=== PATIENT | male | born 1995 | race African-American/Black ===

== ENCOUNTER 2018-03-04 12:14 | Emergency (ER) | payer SELFPAY ==
[~2018-03-04] VITALS: Ht 185.4 cm; Wt 68.0 kg
[2018-03-04 12:28] VITALS: BP 137/64; PULSE 72; RESP 18; TEMP 98.7; O2SAT 99
[2018-03-04] MEDS ORDERED: CEPH-460 PO (12:54)
[2018-03-04] MEDS ORDERED: MAGICADU2 SWISH-SWAL (12:54)
--- NOTE | 2018-03-04 12:55 | PD ---
HPI Chief Complaint: ENT Complaint Time Seen by Provider: 12:35 Travel History International Travel<30 days: No Contact w/Intl Traveler<30days: No Traveled to known affect area: No History of Present Illness HPI 22-year-old male arrives with complaint of sore throat for about 1 week. It is constant. Initially started on the right side and involve the left side as well. Patient also describes body aches and pains. He noticed a bump overlying the region of the greater trochanter on each hip over the past day or so. He denies fever. No sick contacts. PFSH Past Medical History Medical History: Denies Significant Hx Tetanus Vaccination: < 5 Years ?: Not Past Surgical History Surgical History: No Previous Surgery Social History Alcohol Use: No Tobacco Use: No Substance Use: No Allergies-Medications (Allergen,Severity, Reaction): Coded Allergies: latex (Verified Allergy, Unknown, 03/04/18) Reported Meds & Prescriptions Reported Meds & Active Scripts Active No Active Prescriptions or Reported Medications Review of Systems General / Constitutional: No: Fever Eyes: No: Blurred Vision HENT: Positive: Sore Throat Physical Exam Narrative GENERAL: 22-year-old male pleasant well-nourished well-developed Vital Signs Date Time Temp Pulse Resp B/P (MAP) Pulse Ox O2 Delivery O2 Flow Rate FiO2 03/04/18 12:28 98.7 72 18 137/64 (88) 99 SKIN: Warm and dry. There is a minute focus of dried skin in keeping with a healing folliculitis overlying the greater trochanter on each side. there is no warmth induration or fluctuance either side. HEAD: Atraumatic. Normocephalic. EYES: Pupils equal and round. No scleral icterus. No injection or drainage. ENT: No nasal bleeding or discharge. Mucous membranes pink and moist. Minimal erythema about the region of the posterior oropharynx on both sides without asymmetry exudate or hypertrophy. In the region of the buccal mucosa towards the molars bilaterally there is some maceration of the gingiva consistent with trauma from the dentition. NECK: Trachea midline. No JVD. Data Data Last Documented VS Vital Signs Date Time Temp Pulse Resp B/P (MAP) Pulse Ox O2 Delivery O2 Flow Rate FiO2 03/04/18 12:28 98.7 72 18 137/64 (88) 99 MDM Medical Decision Making Medical Screen Exam Complete: Yes Emergency Medical Condition: Yes Medical Record Reviewed: Yes Differential Diagnosis Streptococcal pharyngitis, nonspecific bacterial pharyngitis, folliculitis, aphthous ulcer Narrative Course Possible bacterial pharyngitis. There is minimal maceration the gingival buccal mucosa from the molars. prescription as below. Diagnosis Primary Impression: Disease of gingiva due to traumatic physical injury Additional Impression: Pharyngitis Qualified Codes: J02.9 - Acute pharyngitis, unspecified Referrals: Primary Care Physician 2 days Med/Other Pt SpecificInfo: Prescription(s) given Scripts Cephalexin (Keflex) 500 Mg Cap 500 MG PO Q8H for Infection, #30 CAP 0 Refills Prov: Rodrigue Wilson MD 03/04/18 Yjybfwho-Dsczewtffwmjnio-Ljijoqjks Liq (Magic Mouthwash Adult Liq) 120 Ml Susp 10 ML SWISH-SWAL ACHS for Mouth sores for 3 Days, #120 ML 0 Refills Each 5mL contains: Nystatin 200,000units, Diphenhydramine 4.25mg, Viscous Lidocaine 10mg, Harvey syrup 0.8 mL Prov: Rodrigue Wilson MD 03/04/18 Disposition: 01 DISCHARGE HOME Condition: Stable Rodrigue Wilson MD March 04, 2018 12:55
== END 2018-03-04 13:25 | disposition home or self-care (01) ==
LOC: NEPD 12:14
DX: S09.90XA Unspecified injury of head, initial encounter (principal); J02.9 Acute pharyngitis, unspecified; R52 Pain, unspecified; X58.XXXA Exposure to other specified factors, initial encounter
CPT/HCPCS: 99283